=== PATIENT | female | born 2000 | race Caucasian/White ===

== ENCOUNTER → 2019-05-04 | Outpatient (CLI) | payer OTHER, SELFPAY ==
[2019-05-04 12:10] LABS: Calcium,Total 9.7 mg/dL (8.5-10.1); Estradiol 15.9 pg/mL
[2019-05-04 12:14] LABS: PTHIN 33.5 pg/mL (18.4-80.1)
[2019-05-05 16:48] LABS: DHEA Sulfate 354.9 ug/dL (110.0-431.7)
== END | disposition home or self-care (01) ==
PROVIDERS: Referring Provider Otolaryngology Otolaryngology/Facial Plastic Surgery; Visit Provider Otolaryngology Otolaryngology/Facial Plastic Surgery
DX: I10 Essential (primary) hypertension (principal)
CPT/HCPCS: 36415; 82306; 82310; 82627; 82670; 83970; 82626